=== PATIENT | male | born 1960 | race Caucasian/White ===

== ENCOUNTER 2021-02-23 10:49 | Emergency (ER) | payer OTHER ==
--- OUTSIDE RECORDS SUMMARY | 2021-02-23 10:51 | XMS REPORT | Continuity of Care Document ---
:1960 Author Organization [facility] t Address [address] [place] [address] Dr. Mobley [address] [place] [address] Care Team Providers Name Role Phone Unavailable Unavailable Unavailable Problems Condition Condition Condition Status Onset Resolution Last Treating Co mments Source Name Details Category Date Date Treatment Clinician Date Dyslipidem Dyslipidem Problem Active 2017-07 V illage ia ia 0-17 Family 00:00: Practic 00 e Alopecia Alopecia Problem Active 2017-07 Uriarte ge 0-10 Family 00:00: Practic 00 e Body mass Body Mass Problem Active 2016-07 Alvaro lesley index Index 1-21 Family 24 - 2024 - 00:00: Practic normal Normal 00 e Allergies, Adverse Reactions, Alerts Allergy Allergy Status Severity Reaction(s) Onset Inactive Treating Comm ents Source Name Type Date Date Clinician Augmenti Allergy Active Abdominal Vill age n to pain Family substanc Practic e e Social History Smoking Status Start Date Stop Date Source Never Smoker [facility] ractice Medications Ordered Filled Start Stop Current Ordering Indication Dosage Frequency Signature Comments Components Source Medication Medication Date Date Medication? Clinician (SIG) Name Name finasteride finasteride No 1 Q1D finasterid [facility] 5 mg tablet 5 mg tablet e 5 mg Family Take 1 Take 1 tablet Practic tablet tablet Take 1 e every day every day tablet by oral by oral every day route. route. by oral route. Immunizations Ordered Immunization Filled Immunization Date Status Commen ts Source Name Name influenza, influenza, 2020-04-24 Completed [facility] Family injectable, injectable, 00:00:00 Practice quadrivalent quadrivalent Tdap Tdap 2019-05-14 Completed [facility] Family 17:28:00 Practice influenza, influenza, 2019-05-14 Completed [facility] recombinant, recombinant, 16:39:00 Practice quadrIvalent,injecta quadrIvalent,injecta ble, preservative ble, preservative free free influenza, influenza, 2018-04-17 Completed [facility] unspecified unspecified 00:00:00 Practice formulation formulation influenza, influenza, 2017-04-23 Completed [facility] injectable, injectable, 00:00:00 Practice quadrivalent quadrivalent Vital Signs Vital Name Observation Time Observation Value Comments Source BP Diastolic 2020-07-14 00:00:00 88 mm[Hg] [facility] Practice Height 2020-07-14 00:00:00 69.5 [in_i] [facility] Practice BMI (Body Mass 2020-07-14 00:00:00 24.2 kg/m2 [facility] Family Index) Practice BP Systolic 2020-07-14 00:00:00 155 mm[Hg] [facility] Body Weight 2020-07-14 00:00:00 166 [lb_av] [facility] Height 2020-06-06 00:00:00 69.5 [in_i] [facility] Practice BMI (Body Mass 2020-06-06 00:00:00 24.5 kg/m2 [facility] Index) Practice Body Weight 2020-06-06 00:00:00 168 [lb_av] [facility] Practice BP Diastolic 2019-05-14 00:00:00 80 mm[Hg] [facility] Height 2019-05-14 00:00:00 69.5 [in_i] [facility] Practice BMI (Body Mass 2019-05-14 00:00:00 22.6 kg/m2 [facility] Index) Practice BP Systolic 2019-05-14 00:00:00 132 mm[Hg] [facility] Body Weight 2019-05-14 00:00:00 155 [lb_av] [facility] Procedures Procedure Date / Time Performed Performing Clinician [facility] e CT, abdomen + pelvis, 2019-05-14 00:00:00 [facility] w/o contrast Practice Repair of Nasal Septum [facility] Cancer Surgery [facility] Plan of Care Planned Activity Planned Date Details Comments Source Diagnostic Test 2020-07-14 CBC w/ auto diff [facility] Pending 00:00:00 [code = CBC w/ auto Practice diff] Diagnostic Test 2020-07-14 CMP, serum or [facility] Pending 00:00:00 plasma [code = CMP, Practice serum or plasma] Diagnostic Test 2020-07-14 TSH, serum or [facility] Pending 00:00:00 plasma [code = TSH, Practice serum or plasma] Diagnostic Test 2020-07-14 lipid panel, serum [facility] Pending 00:00:00 [code = lipid Practice panel, serum] Diagnostic Test 2020-07-14 hepatitis C virus [facility] Pending 00:00:00 RNA, quant, PCR, Practice serum or plasma [code = hepatitis C virus RNA, quant, PCR, serum or plasma] Diagnostic Test 2020-07-14 HbA1c (hemoglobin [facility] Pending 00:00:00 A1c), blood [code = Practice HbA1c (hemoglobin A1c), blood] Diagnostic Test 2020-07-14 PSA, serum or [facility] bhupinedr Pending 00:00:00 plasma [code = PSA, Practice serum or plasma] Diagnostic Test 2020-07-14 vitamin D, [facility] Pending 00:00:00 25-hydroxy, total, Practice serum [code = vitamin D, 25-hydroxy, total, serum] Diagnostic Test 2020-07-14 testosterone, [facility] bhupinder Pending 00:00:00 total, serum [code Practice = testosterone, total, serum] Diagnostic Test 2020-07-14 SARS CoV 2 IgG Ab, [facility] Pending 00:00:00 QL IA, serum or Practice plasma [code = SARS CoV 2 IgG Ab, QL IA, serum or plasma] Future Appointment 2021-07-14 Krishan Brown, [address] [facility] 00:00:[address] [address] Instructions [facility] Encounters Start End Encounter Admission Attending Care Care Encounter Source Date/Time Date/Time Type Type Clinicians Facility Department ID 2020-07-14 2020-07-14 Krishan Jo [facility] [place] - [id number] 1 [facility] 00:00:00 00:00:00 MD Kevin: Calvin Famil y [address] [place] [address], ([facility]) [place] [address] , Ph. 2020-06-06 2020-06-06 Jackie [facility] [place] - [id number] [facility] 00:00:00 00:00:00 Calvin Camara y [employer]NER OPERATOR: [id number] [place] [address], ([facility]) [place] [address] , Ph. 2019-05-14 2019-05-14 Krishan Jo [facility] [place] - [id number] 1 [facility] 00:00:00 00:00:00 MD Kevin: [facility] y [address] [facility] - e [address], [facility] [address] , Ph. Results This patient has no known results.
[2021-02-23] MEDS ORDERED: ACETAMINOPHEN 500 MG TAB ONE (11:43)
--- NOTE | 2021-02-23 11:48 | RAD REPORT ---
EXAM DESCRIPTION: RAD - Chest Single View - 02/23/2021 11:42 am CLINICAL HISTORY: COUGH COMPARISON: None TECHNIQUE: AP portable chest image was obtained 02/23/2021 11:42 am . FINDINGS: Lungs are clear. Heart and vasculature are normal. No measurable pleural effusion and no p neumothorax. No acute bony abnormality seen. No acute aortic findings suspected. IMPRESSION: No acute cardiopulmonary process.
--- NOTE | 2021-02-23 15:10 | ER ---
Nurse's Notes [facility] Name: Danie Gruber Age: 60 yrs Sex: Male : 1960 Arrival Date: 02/23/2021 Time: 10:51 Bed DIS4 Private MD: Diagnosis: Coronavirus infection, unspecified;Acute pharyngitis due to other specified organism Presentation: 02/23 11:07 Chief complaint: Patient states: Soar through, back pain, X 5 days. Coronavirus screen: da3 Client denies travel out of the [place] in the last 14 days. Client presents with at least one sign or symptom that may indicate coronavirus-19. Ebola Screen: No symptoms or risks identified at this time. Initial Sepsis Screen: Does the patient meet any 2 criteria? No. Patient's initial sepsis screen is negative. Risk Assessment: Do you want to hurt yourself or someone else? Patient reports no desire to harm self or others. 11:07 Method Of Arrival: Ambulatory da3 11:07 Acuity: RANDALL 3 da3 20:19 Initial Sepsis Screen: Does the patient have a suspected source of infection? No. iw Patient's initial sepsis screen is negative. Onset of symptoms was February 18, 2021. Triage Assessment: 11:15 General: Appears in no apparent distress. comfortable. da3 Historical: - Allergies: 11:11 No Known Allergies; da3 - Immunization history:: Adult Immunizations up to date, Client reports having NOT received the Covid vaccine. - Social history:: Smoking status: Patient denies any tobacco usage or history of. Screenin:45 Abuse screen: Denies threats or abuse. Denies injuries from another. Nutritional ld1 screening: No deficits noted. Tuberculosis screening: No symptoms or risk factors identified. Fall Risk None identified. Assessment: 13:45 General: Appears in no apparent distress. comfortable, Behavior is calm, cooperative, ld1 appropriate for age. Pain: Complains of pain in left low back and right low back Pain does not radiate. Pain currently is 7 out of 10 on a pain scale. Quality of pain is described as throbbing, Pain began gradually, Is continuous. Neuro: Level of Consciousness is awake, alert, obeys commands, Oriented to person, place, time, situation. Cardiovascular: Capillary refill < 3 seconds Patient's skin is warm and dry. Respiratory: Airway is patent Respiratory effort is even, unlabored, Respiratory pattern is regular, symmetrical, Breath sounds are clear bilaterally. GI: Abdomen is flat, non-distended. : No signs and/or symptoms were reported regarding the genitourinary system. EENT: Throat is reddened. Derm: No signs and/or symptoms reported regarding the dermatologic system. Musculoskeletal: Reports pain in left low back and right low back. 16:07 Reassessment: PT D/C HOME AMBULATORY, DX WITH CORONAVIRUS. bp Vital Signs: 11:07 BP 141 / 89; Pulse 89; Resp 22; Temp 103.1; Pulse Ox 99% on R/A; da3 11:16 BP 141 / 98; Pulse 81; Resp 22; Temp 103.1; Pulse Ox 98% on R/A; da3 13:45 BP 144 / 91; Pulse 69; Resp 18; Pulse Ox 97% on R/A; ld1 16:06 BP 135 / 84; Pulse 66; Resp 18; Temp 98.2; Pulse Ox 100% on R/A; bp ED Course: 10:51 Patient arrived in ED. mr 11:11 Triage completed. da3 11:42 Chest Single View XRAY In Process Unspecified. EDMS 13:22 Sari Camp, JE is Primary Nurse. iw 13:42 Haroldo Galvan NP is PHCP. pm1 13:42 Wilner Milton MD is Attending Physician. pm1 13:45 Patient has correct armband on for positive identification. Bed in low position. Call ld1 light in reach. Side rails up X2. Pulse ox on. NIBP on. Door closed. Noise minimized. Warm blanket given. 13:45 No provider procedures requiring assistance completed. ld1 14:00 Arm band placed on. iw 16:07 Patient did not have IV access during this emergency room visit. bp Administered Medications: 12:00 Drug: Tylenol 1000 mg Route: PO; ld1 16:07 Follow up: Response: No adverse reaction; Temperature is decreased bp Outcome: 15:09 Discharge ordered by . pm1 16:07 Discharged to home ambulatory. bp 16:07 Condition: stable 16:07 Discharge instructions given to patient, Instructed on discharge instructions, follow up and referral plans. Demonstrated understanding of instructions, follow-up care. 16:08 Patient left the ED. bp Signatures: Dispatcher [employer] EDWI Wilfredo Ojsselin mr Sari Camp, RN RN iw Haroldo Galvan, BALANCING MACHINE OPERATOR BALANCING MACHINE OPERATOR pm1 Armen Gann RN RN bp Emily Vann, RN RN ld1 Tanner Kennedy RN RN da3
--- NOTE | 2021-02-23 15:10 | EDPHYS ---
Physician Documentation [facility] Name: Danie Gruber Age: 60 yrs Sex: Male : 1960 Arrival Date: 02/23/2021 Time: 10:51 Bed DIS4 Private MD: ED Physician Wilner Milton HPI: 02/23 13:51 This 60 yrs old Male presents to ER via Ambulatory with complaints of Sore pm1 Throat, Cough, Back Pain. 13:51 The patient presents with sore throat. The patient describes throat pain as dry, raw, pm1 scratchy. Onset: The symptoms/episode began/occurred 5 day(s) ago. Severity of symptoms: in the emergency department the symptoms have improved. Modifying factors: The symptoms are alleviated by drinking fluids to sooth throat the symptoms are aggravated by swallowing, Patient's oral intake status: good. Associated signs and symptoms: Pertinent positives: fever, runny nose, cough, back pain, Pertinent negatives chest pain, dysphagia, shortness of breath, dysuria, N/V/D. The patient has not recently seen a physician, the patient's primary care provider is Dr. Brown. Patient presents with sore throat for the past 5 days. Throat improved with drinking fluids and worse in the morning with waking up possibly due to mouth breathing. Patient with dry cough and runny nose. Back pain is improved with getting up and moving around and OTC medications, ibuprofen and Tylenol. No current back pain. Historical: - Allergies: 11:11 No Known Allergies; da3 - Immunization history:: Adult Immunizations up to date, Client reports having NOT received the Covid vaccine. - Social history:: Smoking status: Patient denies any tobacco usage or history of. ROS: 13:51 Eyes: Negative for injury, pain, redness, and discharge. pm1 13:51 Cardiovascular: Negative for chest pain, palpitations, and edema. 13:51 Abdomen/GI: Negative for abdominal pain, nausea, vomiting, diarrhea, and constipation, MS/Extremity: Negative for injury and deformity, Skin: Negative for injury, rash, and discoloration. 13:51 : Negative for injury, bleeding, discharge, and swelling, Neuro: Negative for headache, weakness, numbness, tingling, and seizure. 13:51 Constitutional: Positive for body aches, fever, Negative for poor PO intake. 13:51 ENT: Positive for sore throat, Negative for ear pain, difficulty swallowing, difficulty handling secretions. 13:51 Respiratory: Positive for cough, Negative for shortness of breath, sputum production, wheezing. 13:51 Back: Positive for of the left mid back and right mid back, pain, Negative for injury or acute deformity. 13:51 All other systems are negative. pm1 Exam: 13:51 Constitutional: This is a well developed, well nourished patient who is awake, alert, pm1 and in no acute distress. Head/Face: Normocephalic, atraumatic. 13:51 Back: No spinal tenderness. No costovertebral tenderness. Full range of motion. Skin: Warm, dry with normal turgor. Normal color with no rashes, no lesions, and no evidence of cellulitis. MS/ Extremity: Pulses equal, no cyanosis. Neurovascular intact. Full, normal range of motion. 13:51 Eyes: Exam is negative for acute changes, Extraocular movements: no acute changes, Conjunctiva: no acute changes, no injection, Sclera: no acute changes, icterus, is not appreciated. 13:51 ENT: Exam is negative for acute changes, TM's: are normal, no evidence of bulging, no erythema, no acute changes, Nose: no acute changes, Mouth: Lips: normal, Oral mucosa: normal, pink and intact, moist, Posterior pharynx: Tonsils: bilaterally enlarged, with erythema, no exudate, no ulcerations, erythema, that is moderate, peritonsillar mass, is not appreciated, pooling of secretions, is not appreciated. 13:51 Cardiovascular: Rate: normal, Rhythm: regular, Pulses: no pulse deficits are appreciated, Edema: is not appreciated. 13:51 Respiratory: Exam negative for acute changes, respiratory distress, shortness of breath, Breath sounds: are clear throughout. 13:51 Abdomen/GI: Inspection: abdomen appears normal, Palpation: abdomen is soft and non-tender, in all quadrants. 13:51 Neuro: Exam negative for acute changes, Orientation: is normal, Mentation: is normal, Motor: is normal, moves all fours. Vital Signs: 11:07 BP 141 / 89; Pulse 89; Resp 22; Temp 103.1; Pulse Ox 99% on R/A; da3 11:16 BP 141 / 98; Pulse 81; Resp 22; Temp 103.1; Pulse Ox 98% on R/A; da3 13:45 BP 144 / 91; Pulse 69; Resp 18; Pulse Ox 97% on R/A; ld1 16:06 BP 135 / 84; Pulse 66; Resp 18; Temp 98.2; Pulse Ox 100% on R/A; bp MDM: 13:42 Patient medically screened. pm1 13:58 Data reviewed: vital signs. Data interpreted: Pulse oximetry: on room air is 97 %. pm1 Interpretation: normal. 15:07 Counseling: I had a detailed discussion with the patient and/or guardian regarding: the pm1 historical points, exam findings, and any diagnostic results supporting the discharge/admit diagnosis, lab results, radiology results, the need for outpatient follow up, to return to the emergency department if symptoms worsen or persist or if there are any questions or concerns that arise at home, Need for self quarantine. 02/23 13:17 Order name: Flu; Complete Time: 14:32 pm1 02/23 13:17 Order name: Strep; Complete Time: 14:32 pm1 02/23 11:19 Order name: Chest Single View XRAY; Complete Time: 13:15 bp 02/23 14:20 Order name: Throat Culture EDIA 02/23 15:05 Order name: SARS-COV-2 RT PCR; Complete Time: 15:07 EDMS 02/23 13:17 Order name: Droplet/Contact Precautions; Complete Time: 13:48 pm1 02/23 13:17 Order name: Labs collected and sent; Complete Time: 14:03 pm1 02/23 13:17 Order name: O2 Per Protocol; Complete Time: 13:48 pm1 Administered Medications: 12:00 Drug: Tylenol 1000 mg Route: PO; ld1 16:07 Follow up: Response: No adverse reaction; Temperature is decreased bp Disposition: 16:50 Co-signature as Attending Physician, Wilner Milton MD I agree with the assessment and kdr plan of care. Disposition Summary: 02/23/21 15:09 Discharge Ordered Location: Home pm1 Problem: new pm1 Symptoms: have improved pm1 Condition: Stable pm1 Diagnosis - Coronavirus infection, unspecified pm1 - Acute pharyngitis due to other specified organism pm1 Followup: pm1 - With: Emergency Department - When: As needed - Reason: Worsening of condition Followup: pm1 - With: Private Physician - When: 2 - 3 days - Reason: Recheck today's complaints, Continuance of care, Re-evaluation by your physician Discharge Instructions: - Discharge Summary Sheet pm1 - Antibiotic Resistance pm1 - Pharyngitis pm1 - Sore Throat pm1 - COVID-19 pm1 Forms: - Work release form pm1 - Medication Reconciliation Form pm1 - Thank You Letter pm1 - Antibiotic Education pm1 - Prescription Opioid Use pm1 Signatures: Dispatcher [employer] EDMS Wilner Milton MD MD kdr Haroldo Galvan SUEDING AND BUFFING MACHINE OPERATOR SUEDING AND BUFFING MACHINE OPERATOR pm1 Armen Gann, RN RN bp Emily Vann RN RN ld1 Tanner Kennedy RN RN da3 Corrections: (The following items were deleted from the chart) 14:01 13:18 CORONAVIRUS+BRZ ordered. EDIA EDMS
[2021-02-23 16:19] VITALS: BP 135/84; TEMP 98.2; O2SAT 100
== END 2021-02-23 16:08 | disposition home or self-care (01) ==
LOC: ER 10:49
DX: U07.1 COVID-19 (principal)
CPT/HCPCS: 87070; 87081; 87804 ×2; 71045; U0003

== ENCOUNTER 2021-02-26 02:31 | Emergency (ER) | payer OTHER ==
--- OUTSIDE RECORDS SUMMARY | 2021-02-26 02:34 | XMS REPORT | Continuity of Care Document ---
:1960 Author Organization [facility] t Address [address] [place] [address] Dr. Mobley [address] [place] [address] Care Team Providers Name Role Phone Unavailable [...] Start Date Stop Date Source Never Smoker [facility] Family P ractice Medications Ordered Filled Start Stop Current Ordering Indication Dosage Frequency Signature Comments Components Source Medication Medication Date Date Medication? Clinician (SIG) Name Name finasteride finasteride No 1 Q1D finasterid [facility] 5 mg tablet 5 mg tablet e 5 mg Family Take 1 Take 1 tablet Practic tablet tablet Take 1 e every day every day tablet by oral by oral every day route. route. by oral route. Immunizations Ordered Immunization Filled Immunization Date Status Commen ts Source Name Name influenza, influenza, 2020-04-24 Completed [facility] Family injectable, injectable, 00:00:00 Practice quadrivalent quadrivalent Tdap Tdap 2019-05-14 Completed [facility] Family 17:28:00 Practice influenza, influenza, 2019-05-14 Completed [facility] recombinant, recombinant, 16:39:00 Practice quadrIvalent,injecta quadrIvalent,injecta ble, preservative ble, preservative free free influenza, influenza, 2018-04-17 Completed [facility] unspecified unspecified 00:00:00 Practice formulation formulation influenza, influenza, 2017-04-23 Completed [facility] injectable, injectable, 00:00:00 Practice quadrivalent quadrivalent Vital Signs Vital Name Observation Time Observation Value Comments Source BP Diastolic 2020-07-14 00:00:00 88 mm[Hg] [facility] Practice Height 2020-07-14 00:00:00 69.5 [in_i] [facility] Practice BMI (Body Mass 2020-07-14 00:00:00 24.2 kg/m2 [facility] Family Index) Practice BP Systolic 2020-07-14 00:00:00 155 mm[Hg] [facility] Body Weight 2020-07-14 00:00:00 166 [lb_av] [facility] Height 2020-06-06 00:00:00 69.5 [in_i] [facility] Practice BMI (Body Mass 2020-06-06 00:00:00 24.5 kg/m2 [facility] Index) Practice Body Weight 2020-06-06 00:00:00 168 [lb_av] [facility] Practice BP Diastolic 2019-05-14 00:00:00 80 mm[Hg] [facility] Height 2019-05-14 00:00:00 69.5 [in_i] [facility] Practice BMI (Body Mass 2019-05-14 00:00:00 22.6 kg/m2 [facility] Index) Practice BP Systolic 2019-05-14 00:00:00 132 mm[Hg] [facility] Body Weight 2019-05-14 00:00:00 155 [lb_av] [facility] Procedures Procedure Date / Time Performed Performing Clinician [facility] e CT, abdomen + pelvis, 2019-05-14 00:00:00 [facility] w/o contrast Practice Repair of Nasal Septum [facility] Cancer Surgery [facility] Plan of Care Planned Activity Planned Date Details Comments Source Diagnostic Test 2020-07-14 CBC w/ auto diff [facility] Pending 00:00:00 [code = CBC w/ auto Practice diff] Diagnostic Test 2020-07-14 CMP, serum or [facility] Pending 00:00:00 plasma [code = CMP, Practice serum or plasma] Diagnostic Test 2020-07-14 TSH, serum or [facility] Pending 00:00:00 plasma [code = TSH, Practice serum or plasma] Diagnostic Test 2020-07-14 lipid panel, serum [facility] Pending 00:00:00 [code = lipid Practice panel, serum] Diagnostic Test 2020-07-14 hepatitis C virus [facility] Pending 00:00:00 RNA, quant, PCR, Practice serum or plasma [code = hepatitis C virus RNA, quant, PCR, serum or plasma] Diagnostic Test 2020-07-14 HbA1c (hemoglobin [facility] Pending 00:00:00 A1c), blood [code = Practice HbA1c (hemoglobin A1c), blood] Diagnostic Test 2020-07-14 PSA, serum or [facility] bhupinder Pending 00:00:00 plasma [code = PSA, Practice serum or plasma] Diagnostic Test 2020-07-14 [facility] P[facility] 00:00:00 25-hydroxy, total, Practice serum [code = vitamin D, 25-hydroxy, total, serum] Diagnostic Test 2020-07-14 testosterone, [facility] bhupinder Pending 00:00:00 total, serum [code Practice = testosterone, total, serum] Diagnostic Test 2020-07-14 SARS CoV 2 IgG Ab, [facility] Pending 00:00:00 QL IA, serum or Practice plasma [code = SARS CoV 2 IgG Ab, QL IA, serum or plasma] Future Appointment 2021-07-14 Krishan Brown, [address] [facility] 00:00:[address] [address] Instructions [facility] Encounters Start End Encounter Admission Attending Care Care Encounter Source Date/Time Date/Time Type Type Clinicians Facility Department ID 2020-07-14 2020-07-14 Krishan Jo [facility] [place] - [id number] 1 [facility] 00:00:00 00:00:00 MD Kevin: Calvin Famil y [address] [place] [address], ([facility]) [place] [address] , Ph. 2020-06-06 2020-06-06 Jackie [facility] [place] - [id number] [facility] 00:00:00 00:00:00 Calvin Camara y [employer]: [address] [place] [address], ([facility]) [place] [address] , Ph. 2019-05-14 2019-05-14 Krishan Jo [facility] [place] - [id number] 1 [facility] 00:00:00 00:00:00 MD Kevin: [facility] y [address] [facility] - e [address], [facility] [address] , Ph. Results This patient has no known results.
[2021-02-26 04:09] LABS: Absolute Lymphocytes (CBC) 0.8 K/uL (0.7-4.9); Basophils % 0.3 % (0-1.3); Hematocrit 39.6 % (39.6-49.0); Lymphocytes % 18.5 % (15.3-44.8); MPV 7.7 fL (7.6-11.3); RBC Red Blood Cell Count 4.57 M/uL (4.33-5.43)
[2021-02-26] MEDS ORDERED: NA CHLORIDE 0.9% 2,000 ML ONE (04:14)
[2021-02-26 04:18] LABS: Protime INR 1.02
[2021-02-26] MEDS ORDERED: ONDANSETRON 4 MG/2 ML VIAL ONE ×2 (04:29→06:50)
[2021-02-26 04:48] LABS: ALT/SGPT 48 U/L (12-78); AST/SGOT 48 U/L (15-37); Alkaline Phosphatase 79 U/L (45-117); BUN Blood Urea Nitrogen 16 mg/dL (7-18); Bicarbonate 26 mmol/L (21-32); Bilirubin Direct 0.1 mg/dL (0-0.2); Bilirubin Total 0.5 mg/dL (0.2-1.0); Glucose Level 106 mg/dL (74-106); Lipase 205 U/L (73-393); Potassium 4.2 mmol/L (3.5-5.1); Sodium Level 133 mmol/L (136-145); Troponin (Emerg Dept Use Only) < 0.02 ng/mL (0.0-0.045)
[2021-02-26 05:03] LABS: Ferritin 384.1 ng/mL (26-388)
--- NOTE | 2021-02-26 06:20 | ER ---
Nurse's Notes [facility] Name: Danie Gruber Age: 60 yrs Sex: Male : 1960 Arrival Date: 02/26/2021 Time: 02:36 Bed 15 Private MD: Diagnosis: Covid pneumonia Presentation: 02/26 02:51 Chief complaint: Patient states: he was diagnosed with Covid on 02/23 had it for a week bb prior to getting tested was seen here on Tuesday but now is feeling weak, dehydrated, has fever, feels dizzy and nauseous. Coronavirus screen: Client reports previous positive COVID test result. Ebola Screen: No symptoms or risks identified at this time. Initial Sepsis Screen: Does the patient meet any 2 criteria? No. Patient's initial sepsis screen is negative. Does the patient have a suspected source of infection? No. Patient's initial sepsis screen is negative. Risk Assessment: Do you want to hurt yourself or someone else? Patient reports no desire to harm self or others. Onset of symptoms was January 2021. 02:51 Method Of Arrival: Wheelchair bb 02:51 Acuity: RANDALL 3 bb Historical: - Allergies: 02:54 No Known Allergies; bb - Home Meds: 02:54 finasteride oral [Active]; bb - PMHx: 02:54 BPH; bb - PSHx: 02:54 sinus surgery; bb - Immunization history:: Client reports having NOT received the Covid vaccine. - Social history:: Smoking status: Patient denies any tobacco usage or history of. Screenin:01 Abuse screen: Denies threats or abuse. Nutritional screening: No deficits noted. ea Tuberculosis screening: No symptoms or risk factors identified. Fall Risk IV access (20 points). Assessment: 03:23 Reassessment: Pt ambulated approx 50 ft, room air sats at 95%. ea 04:01 General: Appears uncomfortable, Behavior is appropriate for age. Pain: Denies pain. ea Neuro: Level of Consciousness is awake, alert, obeys commands, Oriented to person, place, time. Cardiovascular: Patient's skin is warm and dry. Respiratory: Airway is patent Respiratory effort is even, unlabored, Respiratory pattern is regular, symmetrical. Derm: Skin is pink, warm \T\ dry. 05:07 Reassessment: Patient and/or family updated on plan of care and expected duration. Pain ea level reassessed. Patient is alert, oriented x 3, equal unlabored respirations, skin warm/dry/pink. 06:33 Reassessment: Patient and/or family updated on plan of care and expected duration. Pain ea level reassessed. Patient is alert, oriented x 3, equal unlabored respirations, skin warm/dry/pink. Vital Signs: 02:51 BP 132 / 79; Pulse 81; Resp 20 S; Temp 100(O); Pulse Ox 96% on R/A; Weight 72.57 kg bb (R); Height 5 ft. 11 in. (180.34 cm) (R); Pain 0/10; 06:33 BP 131 / 70; Pulse 88; Resp 19; Temp 100.4; Pulse Ox 99% ; ea 02:51 Body Mass Index 22.32 (72.57 kg, 180.34 cm) bb ED Course: 02:36 Patient arrived in ED. wm 02:54 Triage completed. bb 02:54 Arm band placed on Patient placed in waiting room, on a stretcher, on pulse oximetry. bb 03:23 Zhanna Strong, JE is Primary Nurse. ea 03:38 John Paul Browning MD is Attending Physician. pkl 03:40 CXR XRAY In Process Unspecified. EDMS 04:01 Patient has correct armband on for positive identification. Bed in low position. Call ea light in reach. Side rails up X2. 04:01 Inserted saline lock: 20 gauge in right antecubital area, using aseptic technique. ea 05:31 CT Chest For PE Angio In Process Unspecified. EDMS 06:33 No provider procedures requiring assistance completed. ea 06:45 IV discontinued, intact, bleeding controlled, No redness/swelling at site. Pressure ea dressing applied. Administered Medications: 03:58 Drug: NS 0.9% 1000 ml Route: IV; Rate: 1000 ml; Site: left antecubital; ea 06:44 Follow up: Response: No adverse reaction; IV Status: Completed infusion; IV Intake: ea 1000ml 03:58 Drug: NS 0.9% 1000 ml Route: IV; Rate: 125 ml/hr; Site: left antecubital; ea 06:44 Follow up: Response: No adverse reaction; IV Status: Completed infusion; IV Intake: ea 800ml 04:10 Drug: Zofran (Ondansetron) 4 mg Route: IVP; Site: right antecubital; ea 06:05 Follow up: Response: No adverse reaction ea 06:32 Drug: Zofran (Ondansetron) 4 mg Route: IVP; Site: right antecubital; ea 06:44 Follow up: Response: No adverse reaction ea 06:32 Drug: Tylenol 1000 mg Route: PO; ea 06:44 Follow up: Response: No adverse reaction ea Intake: 06:44 IV: 800ml; Total: 800ml. ea 06:44 IV: 1000ml; Total: 1800ml. ea Outcome: 06:19 Discharge ordered by . [email or web address] 06:43 Patient left the ED. ea 06:44 Discharged to home ambulatory, with family. ea 06:44 Condition: stable 06:44 Discharge instructions given to patient, Instructed on discharge instructions, follow up and referral plans. medication usage, Demonstrated understanding of instructions, follow-up care, medications, Prescriptions given X 1. Signatures: Dispatcher [employer] EDJohn Paul Miller MD MD pkl Ballard, Brenda, RN RN Zhanna Luna RN RN Amaris Harrison
--- NOTE | 2021-02-26 06:20 | EDPHYS ---
Physician Documentation [facility] Name: Danie Gruber Age: 60 yrs Sex: Male : 1960 Arrival Date: 02/26/2021 Time: 02:36 Bed 15 Private MD: ED Physician John Paul Browning HPI: 02/26 04:03 This 60 yrs old Male presents to ER via Wheelchair with complaints of + COVID pkl 02-23-21, FEELS WEAK, FEVER, DEHYDRATED EVEN THOUGH DRINKING PLENTY OF WATER. 04:03 The patient presents with lightheadedness. Onset: The symptoms/episode began/occurred pkl today. 04:03 Associated signs and symptoms: Pertinent positives: nausea, generalized weakness. pkl Patient tested positive for Covid 19 3 days ago. Historical: - Allergies: 02:54 No Known Allergies; bb - Home Meds: 02:54 finasteride oral [Active]; bb - PMHx: 02:54 BPH; bb - PSHx: 02:54 sinus surgery; bb - Immunization history:: Client reports having NOT received the Covid vaccine. - Social history:: Smoking status: Patient denies any tobacco usage or history of. ROS: 04:03 Eyes: Negative for injury, pain, redness, and discharge, ENT: Negative for injury, pkl pain, and discharge, Neck: Negative for injury, pain, and swelling, Cardiovascular: Negative for chest pain, palpitations, and edema, Respiratory: Negative for shortness of breath, cough, wheezing, and pleuritic chest pain, Abdomen/GI: Negative for abdominal pain, nausea, vomiting, diarrhea, and constipation, Back: Negative for injury and pain, : Negative for injury, bleeding, discharge, and swelling, MS/Extremity: Negative for injury and deformity, Skin: Negative for injury, rash, and discoloration, Neuro: Negative for headache, weakness, numbness, tingling, and seizure. Exam: 04:03 Head/Face: Normocephalic, atraumatic. Eyes: Pupils equal round and reactive to light, pkl extra-ocular motions intact. Lids and lashes normal. Conjunctiva and sclera are non-icteric and not injected. Cornea within normal limits. Periorbital areas with no swelling, redness, or edema. ENT: Nares patent. No nasal discharge, no septal abnormalities noted. Tympanic membranes are normal and external auditory canals are clear. Oropharynx with no redness, swelling, or masses, exudates, or evidence of obstruction, uvula midline. Mucous membranes moist. Neck: Trachea midline, no thyromegaly or masses palpated, and no cervical lymphadenopathy. Supple, full range of motion without nuchal rigidity, or vertebral point tenderness. No Meningismus. Chest/axilla: Normal chest wall appearance and motion. Nontender with no deformity. No lesions are appreciated. Cardiovascular: Regular rate and rhythm with a normal S1 and S2. No gallops, murmurs, or rubs. Normal PMI, no JVD. No pulse deficits. Respiratory: Lungs have equal breath sounds bilaterally, clear to auscultation and percussion. No rales, rhonchi or wheezes noted. No increased work of breathing, no retractions or nasal flaring. Abdomen/GI: Soft, non-tender, with normal bowel sounds. No distension or tympany. No guarding or rebound. No evidence of tenderness throughout. Back: No spinal tenderness. No costovertebral tenderness. Full range of motion. Male : Normal genitalia with no discharge or lesions. 04:03 Musculoskeletal/extremity: Exam is negative for acute changes. 04:03 Skin: Exam negative for rash. 04:03 Neuro: Orientation: is normal, Mentation: is normal, Cranial nerves: grossly normal, Motor: is normal. Vital Signs: 02:51 BP 132 / 79; Pulse 81; Resp 20 S; Temp 100(O); Pulse Ox 96% on R/A; Weight 72.57 kg bb (R); Height 5 ft. 11 in. (180.34 cm) (R); Pain 0/10; 06:33 BP 131 / 70; Pulse 88; Resp 19; Temp 100.4; Pulse Ox 99% ; ea 02:51 Body Mass Index 22.32 (72.57 kg, 180.34 cm) bb MDM: 03:38 Patient medically screened. pkl 06:03 Data reviewed: vital signs, nurses notes, lab test result(s), EKG, radiologic studies. pkl 06:13 ED course: Patient feeling better. Discussed lab and imaging studies with patient, pkl Advised to check his pulse oximetry 2 to 3 times daily. To return to ER for evaluation if pulse ox is less than 92%. Patient understood instructions. 02/26 03:24 Order name: BMP ea 02/26 03:24 Order name: Blood Culture Adult (2) ea 02/26 03:24 Order name: C-Reactive Protein ea 02/26 03:24 Order name: CBC with Diff ea 02/26 03:24 Order name: D-Dimer ea 02/26 03:24 Order name: Ferritin; Complete Time: 06:00 ea 02/26 03:24 Order name: LFT's; Complete Time: 06:00 ea 02/26 03:24 Order name: Lactate; Complete Time: 06:00 ea 02/26 03:24 Order name: Lipase; Complete Time: 06:00 ea 02/26 03:24 Order name: PT-INR; Complete Time: 04:42 ea 02/26 03:24 Order name: Procalcitonin; Complete Time: 06:00 ea 02/26 03:24 Order name: Ptt, Activated; Complete Time: 04:42 ea 02/26 03:24 Order name: Troponin (emerg Dept Use Only); Complete Time: 06:00 ea 02/26 03:25 Order name: Basic Metabolic Panel; Complete Time: 06:00 EDMS 02/26 03:24 Order name: CXR XRAY ea 02/26 03:24 Order name: EKG; Complete Time: 03:25 ea 02/26 03:24 Order name: Cardiac monitoring; Complete Time: 03:36 ea 02/26 03:24 Order name: Droplet/Contact Precautions; Complete Time: 03:36 ea 02/26 03:24 Order name: EKG - Nurse/Tech; Complete Time: 03:36 ea 02/26 03:24 Order name: IV Start; Complete Time: 04:06 ea 02/26 03:25 Order name: Blood Culture EDMS 02/26 03:25 Order name: C-Reactive Protein; Complete Time: 06:00 EDMS 02/26 03:25 Order name: CBC with Automated Diff; Complete Time: 04:42 EDMS 02/26 03:25 Order name: D-Dimer; Complete Time: 04:42 EDMS 02/26 04:30 Order name: CT Chest For PE Angio bb 02/26 03:24 Order name: Labs collected and sent; Complete Time: 04:06 ea 02/26 03:24 Order name: O2 Per Protocol; Complete Time: 03:36 ea 02/26 03:24 Order name: O2 Sat Monitoring; Complete Time: 03:36 ea Administered Medications: 03:58 Drug: NS 0.9% 1000 ml Route: IV; Rate: 1000 ml; Site: left antecubital; ea 06:44 Follow up: Response: No adverse reaction; IV Status: Completed infusion; IV Intake: ea 1000ml 03:58 Drug: NS 0.9% 1000 ml Route: IV; Rate: 125 ml/hr; Site: left antecubital; ea 06:44 Follow up: Response: No adverse reaction; IV Status: Completed infusion; IV Intake: ea 800ml 04:10 Drug: Zofran (Ondansetron) 4 mg Route: IVP; Site: right antecubital; ea 06:05 Follow up: Response: No adverse reaction ea 06:32 Drug: Zofran (Ondansetron) 4 mg Route: IVP; Site: right antecubital; ea 06:44 Follow up: Response: No adverse reaction ea 06:32 Drug: Tylenol 1000 mg Route: PO; ea 06:44 Follow up: Response: No adverse reaction ea Disposition Summary: 02/26/21 06:19 Discharge Ordered Location: Home pkl Problem: new pkl Symptoms: have improved pkl Condition: Stable pkl Diagnosis - Covid pneumonia pkl Followup: pkl - With: Private Physician - When: 2 - 3 days - Reason: Re-evaluation by your physician Discharge Instructions: - Discharge Summary Sheet pkl Forms: - Medication Reconciliation Form pkl - Thank You Letter pkl - Antibiotic Education pkl - Prescription Opioid Use pkl Prescriptions: - Zofran 4 mg Oral Tablet - take 1 tablet by ORAL route every 12 hours As needed; 12 tablet; Refills: 0, pkl Product Selection Permitted Signatures: Dispatcher [employer] John Paul Jorgensen MD MD pkl Selina Layne, RN RN Zhanna Luna RN RN ea
[2021-02-26] MEDS ORDERED: ACETAMINOPHEN 500 MG TAB ONE (06:50)
[2021-02-26 06:52] VITALS: BP 131/70; TEMP 100.4; O2SAT 99
--- NOTE | 2021-02-26 09:02 | RAD REPORT ---
EXAM DESCRIPTION: RAD - Chest Single View - 02/26/2021 3:40 am CLINICAL HISTORY: SOB Chest pain. COMPARISON: Chest Single View dated 02/23/2021 FINDINGS: Portable technique limits examination quality. Interstitial lung opacities are prominent bilaterally. This may represent interstitial pneumonia/ bro nchitis or mild interstitial pulmonary edema. The heart is normal in size. No displaced fractures.
--- NOTE | 2021-02-26 11:45 | RAD REPORT ---
EXAM DESCRIPTION: CTA Chest, Pulmonary Embolus Protocol COMPARISON: None. CLINICAL HISTORY: Elevated D-Dimer TECHNIQUE: CT images through the chest with IV contrast using the pulmonary embolus protocol. Multip lanar reformats. MIPS reformats are provided. Automated exposure control was utilized on this exami nation as a dose lowering technique. FINDINGS: Pulmonary arteries and vascular: Diagnostic quality bolus. No filling defects. Heart and mediastinum: Heart size is normal. No lymphadenopathy. Thyroid gland: Visualized portions are normal. Lungs: Multifocal bilateral groundglass opacities. Airways: No filling defects. No bronchiectasis. Pleura: No pneumothorax. No significant pleural effusion. Subphrenic structures: Within normal limits. Musculoskeletal and soft tissues: Within normal limits for age. IMPRESSION: 1. No evidence of pulmonary embolus. 2. Multifocal pneumonia. Commonly reported imaging features of COVID-19 pneumonia are present. Other processes such as influenza pneumonia and organizing pneumonia, as can be seen with drug toxicity and connective tissue disease, can cause similar imaging pattern. Electronically signed by: Vinod Bailey MD 02/26/2021 5:58 AM CDT Due to temporary technical issues with the PACS/Fluency reporting system, reports are being signed by the in house radiologist without review as a courtesy to ensure prompt reporting. The interpreting r adiologist is fully responsible for the content of the report.
== END 2021-02-26 06:43 | disposition home or self-care (01) ==
LOC: ER 02:31
DX: U07.1 COVID-19 (principal); J12.82 Pneumonia due to coronavirus disease 2019
CPT/HCPCS: 96361; 93005; 87040 ×2; 85025; 80048; 36415; 85610; 85379; 80076; 83605; 85730; 84484; 82728; 83690; 84145; 86140; 71275; 71045; 96374; 99284; Q9967; J7030; J2405 ×2